=== PATIENT | female | born 1955 ===

== ENCOUNTER 2022-02-07 09:51 | Outpatient (CLI) | payer OTHER ==
[2022-02-07 12:38] LABS: Chol/HDL Ratio 3.88 %
== END 2022-02-07 09:52 | disposition home or self-care (01) ==
LOC: LABHHL 09:51
PROVIDERS: ATTEND Internal Medicine
DX: E78.5 Hyperlipidemia, unspecified (principal)
CPT/HCPCS: 36415; 80061